=== PATIENT | male | born 1990 | race American Indian/Alaskan Native ===

== ENCOUNTER 2018-08-12 10:29 | Inpatient (IN) | payer SELFPAY ==
--- NOTE | 2018-08-12 10:39 | EDPHY ---
H & P Source: Patient, RN/MD, EMS Exam Limitations: No limitations Time Seen by Provider: 08/12/18 10:38 HPI/ROS: HPI: This is a 27-year-old male who presents with Chief Complaint: Asthma Location: Lung Quality: Dyspnea Duration: 48 hr Signs and Symptoms: no shortness of breath at rest, no shortness of breath on exertion, no cough, no chest pain, no palpitations, no lower extremity edema, + wheezing, no orthopnea, no paroxysmal nocturnal dyspnea, no fever, no injury/ trauma, no hemoptysis, no carpal pedal spasms Timing: Severity: Context: Patient recently removed from [place] to [place], [place] presents via EMS with complaints of asthma exacerbation that has worsened over the last 48 hr. At baseline he takes albuterol inhaler and QVAR. He reports that he has multiple allergies that cause exacerbations. He has several asthma exacerbations per year. Denies any hospitalizations for asthma exacerbation or need for intubation. Denies any fever, cough, calf pain, recent long distance travel. Patient believes that the fires up in [place] or causing his asthma exacerbation at this time. Has no primary care provider. Modifying Factors: EMS placed on non-rebreather due to hypoxia and gave 125 mg Solu-Medrol, albuterol nebulizer, DuoNeb nebulizer en route Comment: ROS: A comprehensive 10 system review of systems is otherwise negative aside from elements mentioned in the history of present illness. MEDICAL/SURGICAL/SOCIAL HISTORY: Medical history: Asthma Surgical history: Denies Social history: Employed. CONSTITUTIONAL: Polite and cooperative, malodorous, adult white male, awake and alert, mild distress HEENT: Atraumatic and normocephalic, PERRL, EOMI. Nares patent; no rhinorrhea; no nasal mucosal edema. Tympanic membranes clear. Oropharynx clear, no exudate and moist pink mucosa. Airway patent. No lymphadenopathy. No meningismus. Cardiovascular: Normal S1/S2, tachycardia, regular rhythm, without murmur rub or gallop. PULMONARY/CHEST: Symmetrical and nontender. Expiratory wheezing throughout. Fair air movement. + accessory muscle usage. + tachypnea ABDOMEN: Soft, nondistended, nontender, no rebound, no guarding, no peritoneal signs, no masses or organomegaly. No CVAT. EXTREMITIES: 2/2 pulses, strength 5/5, no deformities, no clubbing, no cyanosis or edema. No calf pain. No calf swelling. NEUROLOGICAL: no focal neuro deficits. GCS 15. SKIN: Warm and dry, no erythema. no rash. Good capillary refill. (Debra Gibbs) Constitutional: Initial Vital Signs Temperature (C) 36.8 C 08/12/18 10:41 Heart Rate 115 H 08/12/18 10:41 Respiratory Rate 22 H 08/12/18 10:41 Blood Pressure 107/82 H 08/12/18 10:41 O2 Sat (%) 87 L 08/12/18 10:41 O2 Delivery Mode Nasal Cannula O2 (L/minute) 4 Allergies/Adverse Reactions: No Known Allergies Allergy (Verified 08/12/18 13:31) Home Medications: Medication Instructions Recorded NK [No Known Home Meds] 08/12/18 Medical Decision Making - Diagnostics Imaging Results: Imaging Impressions Chest X-Ray 08/12/18 10:42 Impression: Mild bronchitis. No pneumonia or effusion. ED Course/Re-evaluation: Patient is 87% on room air; placed on continuous nebulizer with tachycardia and tachypnea. Laboratory studies including D-dimer, Chest x-ray, IV Mag 2 g, 500 cc normal saline bolus, DuoNeb for total of 3 ordered 1117: Labs reviewed. H&H 20/60 likely due to hyperventilation syndrome, platelets 260 K, WBC 6.25 K, D-dimer negative, BUN, 24, anion gap 19. No electrolyte imbalance. Chest x-ray shows mild bronchitis but no pneumonia, effusion, pneumothorax. 1150: Reassessed patient and still requiring 4 L of nasal cannula O2 sats 93%. Improving aeration. ED decision to consult hospitalist for asthma exacerbation admission. Spoke with Shi, who kindly agrees to admit patient to Dr. Aguero on med surg. This patient was seen under the supervision of my secondary supervising physician. I evaluated care for this patient independently. Discussed this patient with Dr. Kim. (Debra Gibbs) I did not see this patient while he was in the emergency department. However his care was discussed with the PA while the patient was in the department. I agree with treatment plan and management (Justin Kim) Differential Diagnosis: Shortness of breath including but not limited to pulmonary infectious process, COPD, asthma, pulmonary embolus and congestive heart failure. (Debra Gibbs) - Data Points Laboratory Results: Laboratory Results 08/12/18 10:40 08/12/18 10:40 08/12/18 08/12/18 08/12/18 10:40 10:40 10:40 WBC 16.25 10^3/uL H 10^3/uL (3.80-9.50) RBC 6.86 10^6/uL H 10^6/uL (4.40-6.38) Hgb 20.2 g/dL H* g/dL (13.7-17.5) Hct 60.0 % H % (40.0-51.0) MCV 87.5 fL fL (81.5-99.8) MCH 29.4 pg pg (27.9-34.1) MCHC 33.7 g/dL g/dL (32.4-36.7) RDW 15.4 % H % (11.5-15.2) Plt Count 260 10^3/uL 10^3/uL (150-400) MPV 11.4 fL fL (8.7-11.7) Neut % (Auto) 71.3 % % (39.3-74.2) Lymph % (Auto) 17.4 % % (15.0-45.0) [place] % (Auto) 7.9 % % (4.5-13.0) Eos % (Auto) 2.7 % % (0.6-7.6) Baso % (Auto) 0.4 % % (0.3-1.7) Nucleat RBC Rel Count 0.0 % % (0.0-0.2) Absolute Neuts (auto) 11.59 10^3/uL H 10^3/uL (1.70-6.50) Absolute Lymphs (auto) 2.83 10^3/uL 10^3/uL (1.00-3.00) Absolute Monos (auto) 1.28 10^3/uL H 10^3/uL (0.30-0.80) Absolute Eos (auto) 0.44 10^3/uL H 10^3/uL (0.03-0.40) Absolute Basos (auto) 0.06 10^3/uL 10^3/uL (0.02-0.10) Absolute Nucleated RBC 0.00 10^3/uL 10^3/uL (0-0.01) Immature Gran % 0.3 % % (0.0-1.1) Immature Gran # 0.05 10^3/uL 10^3/uL (0.00-0.10) D-Dimer < 0.27 ug/mLFEU ug/mLFEU (0.00-0.50) Sodium 143 mEq/L mEq/L (135-145) Potassium 4.1 mEq/L mEq/L (3.3-5.0) Chloride 101 mEq/L mEq/L (97-110) Carbon Dioxide 23 mEq/l mEq/l (22-31) Anion Gap 19 mEq/L H mEq/L (6-14) BUN 24 mg/dL H mg/dL (7-23) Creatinine 0.9 mg/dL mg/dL (0.7-1.3) Estimated GFR > 60 Glucose 79 mg/dL mg/dL (70-100) Calcium 10.6 mg/dL H mg/dL (8.5-10.4) Medications Given: Azithromycin (Zithromax) 500 mg PO DAILY JOSE ALFREDO PRN Reason: Protocol Stop: 09/11/18 13:59 Last Admin: 08/12/18 14:37 Dose: 500 mg Sodium Chloride (Ns) 1,000 mls @ 150 mls/hr IV CONT JOSE ALFREDO Stop: 02/08/19 13:59 Last Admin: 08/12/18 14:38 Dose: 1,000 mls Prednisone (Prednisone) 60 mg PO DAILY JOSE ALFREDO Stop: 02/08/19 13:59 Last Admin: 08/12/18 14:37 Dose: 60 mg Discontinued Medications Albuterol/Ipratropium (Duoneb) 3 ml IH EDNOW ONE Stop: 08/12/18 10:43 Last Admin: 08/12/18 11:03 Dose: 3 ml Sodium Chloride (Ns) 500 mls @ 1,000 mls/hr IV EDNOW ONE PRN Reason: Protocol Stop: 08/12/18 11:11 Last Admin: 08/12/18 10:45 Dose: 500 mls Magnesium Sulfate (Magnesium Sulf 2 Gm (Premix)) 50 mls @ 50 mls/hr IV EDNOW ONE Stop: 08/12/18 11:41 Last Admin: 08/12/18 11:03 Dose: 50 mls Departure - Departure Disposition: [facility] Clinical Impression: Moderate asthma with acute exacerbation Qualifiers: Asthma persistence: persistent Qualified Code(s): J45.41 - Moderate persistent asthma with (acute) exacerbation Condition: Fair
[2018-08-12] MEDS ORDERED: NS 500 ML IV ONE (10:42)
[2018-08-12] MEDS ORDERED: MAGNESIUM SULF 2 GM/WATER 50 ML IV ONE (10:42)
[2018-08-12] MEDS ORDERED: IPRATROPIUM/ALBUTEROL 3 ML DEYVIAL IH ONE (10:42)
[2018-08-12 11:09] LABS: PLATELET COUNT 260 10^3/uL (150-400)
[2018-08-12] MEDS ORDERED: LIDOCAINE 4%/MENTHOL 1% PATCH TD ONE (12:28)
--- NOTE | 2018-08-12 13:20 | ASMTCMCOM ---
CM Note CM Note Notes: Chart reviewed. 27 year old male admitted via ED with exacerbation of asthma. He is transient and has no PCP in this area. CM to follow for needs. Plan: TBD Date Signed: 08/12/2018 01:20 PM Electronically Signed By:Lizzette Hansne RN
[2018-08-12] MEDS ORDERED: ALBUTEROL 3 ML DEYVIAL IH PRN (13:52)
[2018-08-12] MEDS ORDERED: ONDANSETRON 4 MG/2 ML VIAL IVP PRN (13:52)
[2018-08-12] MEDS ORDERED: ONDANSETRON DISINTEGRATING 4 MG TAB PO PRN (13:52)
[2018-08-12] MEDS ORDERED: ACETAMINOPHEN 325 MG TAB PO PRN (13:52)
[2018-08-12] MEDS: AZITHROMYCIN 250 MG TAB PO SCH (14:37)
[2018-08-12] MEDS: predniSONE 20 MG TAB PO SCH (14:37)
[2018-08-12] MEDS: NS 1,000 ML IV SCH (14:38)
--- NOTE | 2018-08-12 15:22 | ASMTCMCOM ---
CM Note CM Note Notes: Able to meet with patient this afternoon. He is a very polite 27 year old male admitted via ED for exacerbation of asthma. Per his report he is living with a room mate in [place]. He smell profusely of cigarette smoke but he denies smoking cigarettes. "Just a bowl of pot" last night. Not currently employed and is uninsured. He states his only history is that of asthma. Needs TBD at this time. [facility]. Plan: TBD Date Signed: 08/12/2018 03:21 PM Electronically Signed By:Lizzette Hansen RN
--- NOTE | 2018-08-12 15:49 | PDGENHP ---
History and Physical - Chief Complaint Acute shortness of breath - History of Present Illness Primary care provider: None HPI: 27-year-old male presents with acute shortness of breath characterized as wheezy, labored breathing, struggling to stay alive, with onset of symptoms 5 days ago and duration persistent thereafter. The patient reports that his respiratory discomfort has been mildly alleviated with supplemental oxygen he is obtained from his friend, as well as intermittent use of albuterol inhaler. The patient reports that he was able to utilize his home inhaler and QVAR for the 1st 2 days of his symptoms, and these inhalers were able to alleviate the symptoms and make them tolerable. After his inhalers ran out, the patient had very limited access to albuterol, and his symptoms began to worsen thereafter. He otherwise endorses some associated symptoms that he refers to as "chest cold "which include nausea, mild sore throat, sinus congestion, but no overt fever chills. He reports that he recently relocated here from [place], and he has no access to outpatient medical care at the present time. History Information - Allergies/Home Medication List Allergies/Adverse Reactions: No Known Allergies Allergy (Verified 08/12/18 13:31) Home Medications: NK [No Known Home Meds] 08/12/18 [Last Taken Unknown] I have personally reviewed and updated: family history, medical history, social history, surgical history - Past Medical History asthma (With last hospitalization approximately 2 years ago, he reports that he has milder exacerbations several times a year, has never been intubated, age of diagnosis was early in childhood, and the patient has been on Advair, then transition to QVAR, has had regular use of outpatient albuterol inhaler) Additional medical history: Environmental allergies. Depression and cutting behavior at age 16 - Surgical History Additional surgical history: Tonsillectomy - Family History Additional family history: Mother with asthma, . Brother with heroin addiction. Does not know father's history - Social History Smoking Status: Former smoker Alcohol Use: None Drug Use: Marijuana Additional social history: Currently homeless, residing with a friend in [place] Review of Systems Review of Systems: ROS: 10pt was reviewed & negative except for what was stated in HPI & below Respiratory: Reports: cough, shortness of breath, wheezing Physical Exam Physical Exam: Temp Pulse Resp BP Pulse Ox 36.8 C 107 H 16 135/84 H 91 L 08/12/18 15:12 08/12/18 15:12 08/12/18 15:12 08/12/18 15:12 08/12/18 15:12 O2 (L/minute) 4 Constitutional: no apparent distress, not in pain, uncomfortable, unkempt Eyes: PERRL, anicteric sclera, EOMI Ears, Nose, Mouth, Throat: moist mucous membranes, hearing normal, no oral mucosal ulcers, other (No tonsillar exudate) Cardiovascular: tachycardia, No systolic murmur, No irregularly irregular, No edema Respiratory: expiratory wheeze, bronchial breath sounds, other (Cough triggered with inspiration, inspiratory wheezes, no upper airway stridor) Gastrointestinal: normoactive bowel sounds, soft, non-tender abdomen, no palpable masses Skin: other (Healed cut altamirano scars on his bilateral upper extremity forearms without any ulceration) Neurologic: AAOx3, sensation intact bilaterally, No weakness Psychiatric: interacting appropriately, not anxious, not encephalopathic, thought process linear Lab Data & Imaging Review 08/12/18 10:40 08/12/18 10:40 WBC 16.25 10^3/uL (3.80-9.50) H 08/12/18 10:40 RBC 6.86 10^6/uL (4.40-6.38) H 08/12/18 10:40 Hgb 20.2 g/dL (13.7-17.5) H* 08/12/18 10:40 Hct 60.0 % (40.0-51.0) H 08/12/18 10:40 MCV 87.5 fL (81.5-99.8) 08/12/18 10:40 MCH 29.4 pg (27.9-34.1) 08/12/18 10:40 MCHC 33.7 g/dL (32.4-36.7) 08/12/18 10:40 RDW 15.4 % (11.5-15.2) H 08/12/18 10:40 Plt Count 260 10^3/uL (150-400) 08/12/18 10:40 MPV 11.4 fL (8.7-11.7) 08/12/18 10:40 Neut % (Auto) 71.3 % (39.3-74.2) 08/12/18 10:40 Lymph % (Auto) 17.4 % (15.0-45.0) 08/12/18 10:40 [place] % (Auto) 7.9 % (4.5-13.0) 08/12/18 10:40 Eos % (Auto) 2.7 % (0.6-7.6) 08/12/18 10:40 Baso % (Auto) 0.4 % (0.3-1.7) 08/12/18 10:40 Nucleat RBC Rel Count 0.0 % (0.0-0.2) 08/12/18 10:40 Absolute Neuts (auto) 11.59 10^3/uL (1.70-6.50) H 08/12/18 10:40 Absolute Lymphs (auto) 2.83 10^3/uL (1.00-3.00) 08/12/18 10:40 Absolute Monos (auto) 1.28 10^3/uL (0.30-0.80) H 08/12/18 10:40 Absolute Eos (auto) 0.44 10^3/uL (0.03-0.40) H 08/12/18 10:40 Absolute Basos (auto) 0.06 10^3/uL (0.02-0.10) 08/12/18 10:40 Absolute Nucleated RBC 0.00 10^3/uL (0-0.01) 08/12/18 10:40 Immature Gran % 0.3 % (0.0-1.1) 08/12/18 10:40 Immature Gran # 0.05 10^3/uL (0.00-0.10) 08/12/18 10:40 D-Dimer < 0.27 ug/mLFEU (0.00-0.50) 08/12/18 10:40 Sodium 143 mEq/L (135-145) 08/12/18 10:40 Potassium 4.1 mEq/L (3.3-5.0) 08/12/18 10:40 Chloride 101 mEq/L (97-110) 08/12/18 10:40 Carbon Dioxide 23 mEq/l (22-31) 08/12/18 10:40 Anion Gap 19 mEq/L (6-14) H 08/12/18 10:40 BUN 24 mg/dL (7-23) H 08/12/18 10:40 Creatinine 0.9 mg/dL (0.7-1.3) 08/12/18 10:40 Estimated GFR > 60 08/12/18 10:40 Glucose 79 mg/dL (70-100) 08/12/18 10:40 Calcium 10.6 mg/dL (8.5-10.4) H 08/12/18 10:40 Visualized and Interpreted Chest x-ray results: Yes Chest X-Ray results: other (No airspace disease, some mild peribronchial thickening) Assessment & Plan Assessment: 27-year-old male presenting with acute asthma exacerbation, acute hypoxic respiratory failure, and systemic inflammatory response syndrome Plan: 1. Asthma exacerbation. Acute, new problem this provider, further workup indicated. Evidenced by expiratory wheezes and bronchial breath sounds with a known history of asthma, most likely trigger is URI verses environmental allergens -no infiltrate on chest x-ray -send respiratory viral panel -D-dimer is negative -patient reports that he has symptomatically improved with Solu-Medrol and nebulizer received by EMS, continue prednisone 60 mg daily plus azithromycin 500 daily plus DuoNeb scheduled plus antitussives as needed -patient will most likely require outpatient maintenance therapy comma recently on QVAR -will provide him with outpatient pulmonary follow-up after stabilization 2. Acute hypoxic respiratory failure. Evidenced by SpO2 of 87% on room air on presentation with visible tachypnea, symptomatic shortness of breath, requiring non-rebreather initially in the emergency department, currently weaned down to 4 L nasal cannula status post aggressive bronchodilator therapy for asthma -continue on supplemental oxygen, unclear whether patient will require supplemental oxygen at time discharge, he currently does not have any outpatient resources so he may require ongoing hospitalization [facility] as he has hypoxic 3. Systemic inflammatory response syndrome. Evidenced by tachycardia, tachypnea , leukocytosis, most likely triggered by asthma exacerbation, no evidence of acute infection -continue normal saline overnight, monitor heart rate and respiratory rate Diet. Regular Prophylaxis. Low risk patient, SCDs Code. Full, patient reports that he does not have anyone who would make medical decisions for him if he was unable to comma but he is amenable to his ex , Rosalinda Oates, who lives in [facility], if absolutely needed Dispo. Anticipated discharge is uncertain this time, anticipated length stay is greater than 48 hr for reasonable medical necessity including acute asthma exacerbation acute hypoxic respiratory failure and systemic inflammatory response syndrome. I have discussed patient's presentation with Debra Gibbs, ED provider, she reports to me that the patient presented in obvious respiratory distress requiring non-rebreather, has started to improve with bronchodilator therapy, steroids, weaned to 4 L nasal cannula at this time, she and I both agree patient meets inpatient criteria and is safe for the [facility] floor.
[2018-08-12] MEDS ORDERED: guaiFENesin/CODEINE PHOS 10 ML UDCUP PO PRN (15:56)
[2018-08-12] MEDS ORDERED: BENZONATATE 100 MG CAP PO PRN (15:56)
[2018-08-12] MEDS: IPRATROPIUM/ALBUTEROL 3 ML DEYVIAL IH SCH ×2 (16:01→19:01)
[2018-08-13] MEDS: IPRATROPIUM/ALBUTEROL 3 ML DEYVIAL IH SCH ×4 (03:21→21:59)
[2018-08-13] MEDS: NS 1,000 ML IV SCH (03:33)
--- NOTE | 2018-08-13 06:49 | PDMN ---
Medical Necessity Medical necessity: Pt meets inpt criteria per MD order and [facility] M-60, Asthma. 27 y/o admitted w/acute hypoxic respiratory failure in setting of asthma exacerbation presenting w/exp wheezing, SpO2 of 87% on room air, visible tachypnea, symptomatic shortness of breath requiring non-rebreather initially then 4 L O2 nc, SIRS as evidenced by tachycardia, tachypnea, leukocytosis. IVF, suppl O2, steroids, abx,, Anticipate>2MN for med nec ongoing management of above.
[2018-08-13] MEDS: predniSONE 20 MG TAB PO SCH (10:44)
[2018-08-13] MEDS: AZITHROMYCIN 250 MG TAB PO SCH (10:44)
[2018-08-13] MEDS ORDERED: MEPERIDINE 25 MG/0.5 ML AMP ONE (10:59)
[2018-08-13] MEDS ORDERED: HYDROmorphONE/DILAUDID 2 MG/ML INJ ONE (10:59)
--- NOTE | 2018-08-13 12:48 | ASMTCMCOM ---
CM Note CM Note Notes: Attempt made to screen patient for medicaid. He has no knowledge of his social security number and currently has no photo ID. He is asking if we will provide him medications upon discharge. He states his living situation is not optimal. I have encouraged him to utilize the [facility] bed and opt for the pathway to home,Per Dr. Linda request, I have made him a [facility] appointment for [facility]/19 at 2: 10 pm with Lakia Sainz at the [place] location. CM available should other needs arise. Plan: Dc to [facility] or to [place] where he has been staying. Date Signed: 08/13/2018 12:47 PM Electronically Signed By:Lizzette Hansen RN
--- NOTE | 2018-08-13 20:15 | HOSPPROG ---
Hospitalist Progress Note Assessment/Plan: Assessment: 27-year-old male presenting with acute asthma exacerbation, acute hypoxic respiratory failure, and systemic inflammatory response syndrome Plan: 1. Asthma exacerbation. Acute, evidenced by expiratory wheezes and bronchial breath sounds with a known history of asthma, most likely trigger is URI verses environmental allergens -RVP neg -patient will require maintenance therapy s/p DC, reviewed choices w/ pharmacy, will start Advair -cont scheduled duonebs given ongoing diffuse exp wheeze and hypoxia -cont D#2 steroids/Azithro -will provide him with outpatient pulmonary follow-up after stabilization 2. Acute hypoxic respiratory failure. Evidenced by SpO2 of 87% on room air on presentation with visible tachypnea, symptomatic shortness of breath, requiring non-rebreather initially in the emergency department -counseled patient re: ongoing o2 needs, encouraged patient/RN to check ambulatory RA sat 3. Systemic inflammatory response syndrome. Evidenced by tachycardia, tachypnea , leukocytosis, most likely triggered by asthma exacerbation, no evidence of acute infection -resolved Diet. Regular Prophylaxis. Low risk patient, SCDs Code. Full, patient reports that he does not have anyone who would make medical decisions for him if he was unable to comma but he is amenable to his ex , Rosalinda Oates, who lives in [facility], if absolutely needed Dispo. ADD 08/14, pending clinical resolution of above, ongoing o2 needs/exp wheezes Subjective: ongoing SOB Objective: Vital Signs Temp Pulse Resp BP Pulse Ox 36.8 C 95 18 99/59 L 92 08/13/18 15:33 08/13/18 16:20 08/13/18 16:20 08/13/18 15:33 08/13/18 16:20 Microbiology 08/12/18 15:30 Respiratory Panel (PCR) - Final Nasal, Sinus - Swab No Organism Detected 08/12/18 08/13/18 08/14/18 05:59 05:59 05:59 Intake Total 1789 2568 Balance 1789 2568 - Physical Exam Constitutional: no apparent distress, appears nourished, not in pain, uncomfortable Cardiovascular: regular rate and rhythym, no murmur, rub, or gallop, No edema Respiratory: reduced air movement, expiratory wheeze (bilat), other (mild insp wheeze), No bronchial breath sounds Gastrointestinal: normoactive bowel sounds, soft, non-tender abdomen, no palpable masses Neurologic: AAOx3 Psychiatric: interacting appropriately, not anxious, not encephalopathic, thought process linear ICD10 Worksheet Patient Problems: Problems Problem Status Onset Moderate asthma with acute exacerbation Acute
[2018-08-13] MEDS: FLUTICASONE/SALMETER 250/50MCG DISKUS IH SCH (21:59)
[2018-08-14] MEDS: IPRATROPIUM/ALBUTEROL 3 ML DEYVIAL IH SCH ×4 (05:36→21:11)
[2018-08-14] MEDS: AZITHROMYCIN 250 MG TAB PO SCH (10:10)
[2018-08-14] MEDS: predniSONE 20 MG TAB PO SCH (10:11)
[2018-08-14] MEDS: FLUTICASONE/SALMETER 250/50MCG DISKUS IH SCH ×2 (10:27→21:11)
--- NOTE | 2018-08-14 17:36 | HOSPPROG ---
Hospitalist Progress Note Assessment/Plan: Assessment: 27-year-old male presenting with acute asthma exacerbation, acute hypoxic respiratory failure, and systemic inflammatory response syndrome Plan: 1. Asthma exacerbation. Acute, evidenced by expiratory wheezes and bronchial breath sounds with a known history of asthma, most likely trigger is URI verses environmental allergens -RVP neg -started Advair -cont scheduled duonebs given ongoing diffuse exp wheeze and hypoxia -cont D#3 steroids/Azithro -case mgmt to help arrange [facility] appt, where he will likely receive ongoing Rx 2. Acute hypoxic respiratory failure. Evidenced by SpO2 of 87% on room air on presentation with visible tachypnea, symptomatic shortness of breath, requiring non-rebreather initially in the emergency department -counseled patient re: ongoing o2 needs, encouraged patient/RN to check ambulatory RA sat -SpO2 86% RA w/ ambulation, unsafe to DC w/o o2 3. Systemic inflammatory response syndrome. Evidenced by tachycardia, tachypnea , leukocytosis, most likely triggered by asthma exacerbation, no evidence of acute infection -resolved Diet. Regular Prophylaxis. Low risk patient, SCDs Code. Full, patient reports that he does not have anyone who would make medical decisions for him if he was unable to comma but he is amenable to his ex , Rosalinda Oates, who lives in [facility], if absolutely needed Dispo. ADD 08/15, pending clinical resolution of above, ongoing o2 needs/exp wheezes Subjective: reports he is starting to feel better, ongoing SOB w/ ambulation Objective: Vital Signs Temp Pulse Resp BP Pulse Ox 36.7 C 88 20 114/68 90 L 08/14/18 14:50 08/14/18 16:32 08/14/18 16:32 08/14/18 14:50 08/14/18 16:32 08/13/18 08/14/18 08/15/18 05:59 05:59 05:59 Intake Total 1789 2818 Output Total 200 Balance 1789 2618 - Physical Exam Constitutional: no apparent distress, appears nourished, not in pain Cardiovascular: regular rate and rhythym, no murmur, rub, or gallop Respiratory: expiratory wheeze, other (insp wheeze bilat), No reduced air movement, No bronchial breath sounds, No respiratory distress Gastrointestinal: normoactive bowel sounds, soft, non-tender abdomen, no palpable masses Neurologic: AAOx3 Psychiatric: interacting appropriately, not anxious, not encephalopathic, thought process linear ICD10 Worksheet Patient Problems: Problems Problem Status Onset Moderate asthma with acute exacerbation Acute
[2018-08-15] MEDS: IPRATROPIUM/ALBUTEROL 3 ML DEYVIAL IH SCH (05:24)
[2018-08-15 07:30] VITALS: BP 115/73
[2018-08-15] MEDS: AZITHROMYCIN 250 MG TAB PO SCH (08:25)
[2018-08-15] MEDS: predniSONE 20 MG TAB PO SCH (08:25)
[2018-08-15] MEDS ORDERED: ALBUTEROL 60 PUFFS/8 GM MDI IH PRN (08:56)
[2018-08-15] MEDS: FLUTICASONE/SALMETER 250/50MCG DISKUS IH SCH (09:33)
--- NOTE | 2018-08-15 11:20 | ASMTLACE ---
LACE Length of stay for Answers: 2 days current admission Acuity / Level of Answers: Yes Care: Did the patient have an inpatient admission? Comorbidities - select Answers: Other Notes: asthma all that apply # of Emergency department Answers: 1-2 visits in the last 6 months Social determinants Answers: Homelessness (street, custodial) Lack of community resources and/or lack of social support (no pcp, lives alone, transportation, tariq d) Score: 14 Date Signed: 08/15/2018 11:19 AM Electronically Signed By:Lisa Aguirre RN
--- NOTE | 2018-08-15 11:22 | ASMTCMCOM ---
CM Note CM Note Notes: Met with pt, declines the need for a custodial bed. He will go back up to stay in [place]. CM gave him a bus pass and he is aware of his appointment at the [facility] on Saturday. CM available for any changes. DC Plan: Independent Date Signed: 08/15/2018 11:21 AM Electronically Signed By:Lisa Aguirre RN
--- NOTE | 2018-08-15 19:25 | PDDCSUM ---
Discharge Summary Discharge Summary: DISCHARGE SUMMARY FOLLOW-UP ITEMS: [facility] DATE OF ADMISSION: 08/12/2018 DATE OF DISCHARGE: 08/15/2018 DISCHARGE DIAGNOSES: 1. Acute asthma exacerbation 2. Acute hypoxic respiratory failure 3. Systemic inflammatory response syndrome CONSULTATIONS: None PROCEDURES / IMAGING: Chest x-ray demonstrating no focal airspace disease CHIEF COMPLAINT: Acute shortness of breath, cough SUBJECTIVE: Patient is feeling much improved at time of discharge PHYSICAL EXAM ON DISCHARGE: Saturating 95% on room air, ongoing expiratory wheezes bilaterally but with improved air movement from day prior, no bronchial breath sounds, no visible tachypnea HOSPITAL COURSE BY PROBLEM: Patient presented with acute shortness of breath and cough with auditory expiratory wheezes and bronchial breath sounds secondary to an acute asthma exacerbation. This was most likely triggered by upper respiratory viral precipitant, although his respiratory viral panel was negative for common viruses. He has also recently been off of his QVAR and has run out of his albuterol inhaler. The patient's situation resultant acute hypoxic respiratory failure evidenced by SpO2 of 87% on room air with visible tachypnea, symptomatic shortness of breath and the patient initially requiring a non- rebreather in the emergency department. He received IV steroids, scheduled duo nebs, antibiotics reduce airway inflammation, and supplemental oxygen. By evening, the patient was weaned off of supplemental oxygen, received ongoing scheduled nebs overnight, and was safe for discharge home on 08/15 with an albuterol inhaler in hand as well as an Advair inhaler for maintenance therapy. The patient was scheduled follow-up appointment at [facility] where he will require an ongoing supply of maintenance medication. He was also prescribed a prednisone taper given his severity of illness and protracted resolution. DISCHARGE MEDICATIONS: Please see official discharge medication reconciliation sheet in chart , prednisone taper over 9 days, albuterol inhaler in hand, Advair inhaler in hand. DISCHARGE INSTRUCTIONS: Please follow up with [facility] next week as scheduled. TIME SPENT: Greater than 30 minutes were spent on direct patient care, as well as discharge planning and preparation.
== END 2018-08-15 12:04 | disposition home or self-care (01) | DRG 202 ==
LOC: F1N 13:06 → F3E 08-14 21:23
PROVIDERS: ADMIT Internal Medicine; ATTEND Internal Medicine
DX: J45.901 Unspecified asthma with (acute) exacerbation (principal); J96.01 Acute respiratory failure with hypoxia; R65.10 Systemic inflammatory response syndrome (SIRS) of non-infectious origin without acute organ dysfunction; E86.9 Volume depletion, unspecified; Z59.0 Homelessness
CPT/HCPCS: 96365; J1170; J2175; J3475; J7512

== ENCOUNTER 2018-09-17 10:51 | Emergency (ER) | payer MEDICAID ==
--- NOTE | 2018-09-17 11:00 | EDPHY ---
H & P Time Seen by Provider: 09/17/18 10:52 HPI/ROS: CHIEF COMPLAINT: Asthma exacerbation HISTORY OF PRESENT ILLNESS: Patient is a 28-year-old man who is brought to the emergency department via EMS complaining of an asthma exacerbation. He states that he typically has mild asthma but only needs his inhaler once or twice per month. Last night his symptoms got worse and he developed shortness of breath. He does not have his inhaler with him currently. His girlfriend is a smoker and they also got new puppies. He suspects that these are the triggers. No recent runny nose or cold symptoms. No sore throat. No cough. This morning they called EMS who gave him Solu-Medrol IV 125 mg as well as 2 rounds of albuterol. He now is feeling much better. He still has mild wheezes but is saturating 98% on room air. Severity: Moderate Modifying factors: Improved with treatment REVIEW OF SYSTEMS: Constitutional: denies: chills, fever, recent illness, recent injury EENTM: denies: blurred vision, double vision, nose congestion Respiratory: See HPI Cardiac: denies: chest pain, irregular heart rate, lightheadedness, palpitations Gastrointestinal/Abdominal: denies: abdominal pain, diarrhea, nausea, vomiting, blood streaked stools Genitourinary: denies: dysuria, frequency, hematuria, pain Musculoskeletal: denies: joint pain, muscle pain Skin: denies: lesions, rash, jaundice, bruising Neurological: denies: headache, numbness, paresthesia, tingling, dizziness, weakness Hematologic/Lymphatic: denies: blood clots, easy bleeding, easy bruising Immunologic/allergic: denies: HIV/AIDS, transplant 10 systems reviewed and negative except as noted EXAM: GENERAL: Well-appearing, well-nourished and in no acute distress. HEAD: Atraumatic, normocephalic. EYES: Pupils equal round and reactive to light, extraocular movements intact, sclera anicteric, conjunctiva are normal. ENT: TMs normal, nares patent, oropharynx clear without exudates. Moist mucous membranes. NECK: Normal range of motion, supple without lymphadenopathy or JVD. LUNGS: Mild expiratory wheezing, no rhonchi HEART: Regular rate and rhythm without murmurs, rubs or gallops. ABDOMEN: Soft, nontender, normoactive bowel sounds. No guarding, no rebound. No masses appreciated. BACK: No CVA tenderness, no spinal tenderness, step-offs or deformities EXTREMITIES: Normal range of motion, no pitting or edema. No clubbing or cyanosis. NEUROLOGICAL: Cranial nerves II through XII grossly intact. Normal speech, normal gait. 5/5 strength, normal movement in all extremities, normal sensation , normal reflexes PSYCH: Normal mood, normal affect. SKIN: Warm, dry, normal turgor, no visible rashes or lesions. Source: Patient, EMS Exam Limitations: No limitations - Medical/Surgical History Hx Asthma: Yes Hx Chronic Respiratory Disease: No Hx Diabetes: No Hx Cardiac Disease: No Hx Renal Disease: No Hx Cirrhosis: No Hx Alcoholism: No Hx HIV/AIDS: No Other PMH: Asthma - Family History Significant Family History: No pertinent family hx - Social History Smoking Status: Former smoker Alcohol Use: Sober Drug Use: None Constitutional: Initial Vital Signs Temperature (C) 36.8 C 09/17/18 10:56 Heart Rate 71 09/17/18 10:56 Respiratory Rate 22 H 09/17/18 10:56 Blood Pressure 134/83 H 09/17/18 10:56 O2 Sat (%) 97 09/17/18 10:56 O2 Delivery Mode Room Air Allergies/Adverse Reactions: No Known Allergies Allergy (Unverified 09/17/18 11:07) Home Medications: Medication Instructions Recorded Albuterol [Proventil Inhaler] 1 - 2 puffs IH Q4H #1 mdi 09/17/18 predniSONE 60 mg PO DAILY #15 tab 09/17/18 Medical Decision Making ED Course/Re-evaluation: 12:20 p.m. the patient is saturating 98% on room air. He is feeling much better. He is eager to go home. Will discharge with albuterol and prednisone. We discussed indications for returning. Differential Diagnosis: Partial list of the Differential diagnosis considered include but were not limited to; asthma exacerbation, bronchitis, and although unlikely based on the history and physical exam, I also considered pneumothorax, acute coronary disease. I discussed these differential diagnoses and the plan with the patient as well as the usual and expected course. The patient understands that the diagnosis is provisional and that in medicine we are not always correct and that further workup is often warranted. Usual and customary warnings were given. All of the patient's questions were answered. The patient was instructed to return to the emergency department should the symptoms at all worsen or return, otherwise to followup with the physician as we discussed. Departure - Departure Disposition: Home, Routine, Self-Care Clinical Impression: Exacerbation of asthma Qualifiers: Asthma severity: mild Asthma persistence: intermittent Qualified Code(s): J45.21 - Mild intermittent asthma with (acute) exacerbation Condition: Fair Instructions: Asthma (ED) Additional Instructions: You have a follow up appointment scheduled at [facility] for September 23 at 10:50 AM. [address] Please bring a photo ID, ant medications you are taking, and your ED discharge paperwork with you to your appointment You will have a $20 co-pay due at the time of this visit and you will have 30 days from the date of this appointment to establish medical (insurance) coverage. We have provided you information today regarding the process for Medicaid application. You will check in at The [employer] desk and your provider is NANCY Garrison It is important that you keep this appointment and establish a primary care provider. This will help you to manage your asthma, medications, and any other health concerns Referrals: Patient,NotPresent [Primary Care Provider] - As per Instructions [facility],. [Clinic] - 2-3 days, call for appt. Prescriptions: Albuterol [Proventil Inhaler] 1 - 2 puffs IH Q4H #1 mdi predniSONE 60 mg PO DAILY #15 tab
[2018-09-17 13:29] VITALS: BP 135/75
--- NOTE | 2018-09-17 17:02 | ASMTCMCOM ---
CM Note CM Note Notes: Appointment scheduled at [facility] for ED follow up and to establish PCP on September 23 at 1050 AM. Patient aware of $20 co-pay and was provided information regarding [place] Medicaid application. Patient states that he is originally from [place] but has been living in [place] for the past couple of years and is currently covered by [place] Medicaid. Patient is living in [place] and tells this CM that he has recently started working at [employer]. He assures me he will follow up with his appointment on Saturday and I have faxed ED report to [facility] Date Signed: 09/17/2018 05:01 PM Electronically Signed By:Grecia Andrews RN
== END 2018-09-17 13:29 | disposition home or self-care (01) ==
LOC: MERGE 10:51
DX: J45.21 Mild intermittent asthma with (acute) exacerbation (principal); Z87.891 Personal history of nicotine dependence

== ENCOUNTER 2018-09-23 22:32 | Emergency (ER) | payer SELFPAY ==
[~2018-09-23 22:32] MED LIST: predniSONE 20 MG TAB PO SCH
--- NOTE | 2018-09-23 22:41 | EDPHY ---
H & P Stated Complaint: SOB and asthma attack Time Seen by Provider: 09/23/18 22:39 HPI/ROS: HPI The patient presents with asthma exacerbation, brought in by EMS. The patient has a history of asthma and over the last 1 day has had increasing wheezes. He has had wheezing this morning, and the [place] fire department gave him a DuoNeb with improvement in his symptoms. However he had increasing wheezing throughout the course of the day and called 911. He traveled from [place] to [place] with hopes that the lower elevation would help his symptoms. He believes the cold weather is his trigger. When paramedics picked him up his room air saturation was 90% but he was not in any respiratory distress. He was given Solu-Medrol and a DuoNeb and is now feeling better. He does not have any cough, rhinorrhea, sore throat, fever. Upon review of old records, patient has a ED visit on September 17 for mild asthma exacerbation and was discharged. He completed a course of albuterol. On August 12 he was admitted to the hospital for asthma exacerbation for 3 days. REVIEW OF SYSTEMS 10 systems were reviewed and negative with the exception of the elements mentioned in the history of present illness. PMHx: Asthma since childhood, many admissions with no intubations Soc Hx: Transiently living in [place] with plans to travel to [place] , nonsmoker, uses marijuana edibles, girlfriend smokes cigarettes PHYSICAL General Appearance: Alert, no distress Eyes: Pupils equal and round no pallor or injection ENT, Mouth: Mucous membranes moist Respiratory: There are no retractions, he is speaking full sentences, he has expiratory wheezes in all lung zazueta Cardiovascular: Regular rate and rhythm Gastrointestinal: Abdomen is soft and non-tender, no masses, bowel sounds normal Neurological: A&O, moves all extremities Skin: Warm and dry, no rashes Musculoskeletal: Neck is supple non tender Extremities: symmetrical, full range of motion Psychiatric: Patient is oriented X 3, there is no agitation Source: Patient, EMS, Old records Exam Limitations: No limitations - Personal History Current Tetanus/Diphtheria Vaccine: No Current Tetanus Diphtheria and Acellular Pertussis (TDAP): No - Medical/Surgical History Hx Asthma: Yes Hx Chronic Respiratory Disease: No Hx Diabetes: No Hx Cardiac Disease: No Hx Renal Disease: No Hx Cirrhosis: No Hx Alcoholism: No Hx HIV/AIDS: No Hx Splenectomy or Spleen Trauma: No Other PMH: Asthma, right ankle surgery - Social History Smoking Status: Former smoker Constitutional: Initial Vital Signs Temperature (C) 36.6 C 09/23/18 22:35 Heart Rate 94 09/23/18 22:35 Respiratory Rate 18 09/23/18 22:35 Blood Pressure 128/83 H 09/23/18 22:35 O2 Sat (%) 91 L 09/23/18 22:35 O2 Delivery Mode Room Air Allergies/Adverse Reactions: No Known Allergies Allergy (Verified 09/23/18 22:37) Home Medications: Medication Instructions Recorded Albuterol [Proventil Inhaler HFA 2 puffs IH Q4HRS PRN mdi 08/15/18 (*)] predniSONE 40 mg PO DAILY 4 Days tablet 09/23/18 Medical Decision Making Differential Diagnosis: This is a 28-year-old male who is brought in by ambulance for shortness of breath and wheezing for the last 1 day. He has a history of asthma. He is initially hypoxic at about 90% when paramedics found him. He has improved with a DuoNeb and Solu-Medrol. Here, he is not in any respiratory distress, his lungs have expiratory wheezes. Plan for repeat albuterol here, monitoring. The patient improved after receiving an albuterol nebulizer treatment. He was observed here for about 2 hr. He had no desaturations. He still had expiratory wheezes but they had diminished significantly. He feels comfortable being discharged home. We have discharged him with prednisone prescription in hand as well as albuterol inhaler in hand. I have advised him that [facility] I feel that he should be on a daily controller medication for his asthma. Differential diagnosis includes asthma exacerbation, less likely COPD exacerbation, less likely pneumonia. - Data Points Medications Given: Discontinued Medications Albuterol (Proventil Neb) 5 ml IH EDNOW ONE Stop: 09/23/18 22:53 Last Admin: 09/23/18 22:56 Dose: 5 ml Albuterol Sulfate (Proventil Inh Prepack) 1 mdi TAKEHOME EDNOW ONE Stop: 09/23/18 22:53 Last Admin: 09/23/18 23:10 Dose: 1 mdi Departure - Departure Disposition: Home, Routine, Self-Care Clinical Impression: Moderate asthma with acute exacerbation Qualifiers: Asthma persistence: unspecified Qualified Code(s): J45.901 - Unspecified asthma with (acute) exacerbation Condition: Good Instructions: Albuterol (By breathing), Asthma (ED) Referrals: [facility],. [Clinic] - As per Instructions Prescriptions: predniSONE 40 mg PO DAILY 4 Days tablet
[2018-09-23] MEDS ORDERED: ALBUTEROL 3 ML DEYVIAL IH ONE (22:52)
[2018-09-23] MEDS ORDERED: ALBUTEROL INH PREPACK MDI TAKEHOME ONE (22:52)
[2018-09-23 23:39] VITALS: BP 125/69
== END 2018-09-24 00:36 | disposition home or self-care (01) ==
LOC: EDUNIT#
DX: J45.41 Moderate persistent asthma with (acute) exacerbation (principal); Z87.891 Personal history of nicotine dependence
CPT/HCPCS: J7512; J7613

== ENCOUNTER 2018-10-03 05:05 | Emergency (ER) | payer SELFPAY ==
[2018-10-03] MEDS ORDERED: methylPREDNISolone SOD SUCC 125 MG/2 ML VIAL IVP ONE (05:09)
[2018-10-03] MEDS ORDERED: IPRATROPIUM/ALBUTEROL 3 ML DEYVIAL IH ONE ×2 (05:09→05:47)
[2018-10-03] MEDS ORDERED: NS 1,000 ML IV ONE ×2 (05:09→05:47)
[2018-10-03] MEDS ORDERED: ALBUTEROL INH PREPACK MDI TAKEHOME ONE (05:12)
--- NOTE | 2018-10-03 05:12 | EDPHY ---
H & P Time Seen by Provider: 10/03/18 05:09 HPI/ROS: HPI CHIEF COMPLAINT: Asthma HISTORY OF PRESENT ILLNESS: 28-year-old male, presents emergency room for asthma attack. Patient is homeless. 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 He presents emergency room shortness of breath, wheezing and a cough. Patient is currently homeless and has been homeless for 8 years. [place]. When he gets very cold night sometimes asthma acts up. He does smoke marijuana regularly. No tobacco. He presents emergency room after calling 911 for wheezing and shortness of breath. EMS started a DuoNeb breathing treatment for him and brought him to the emergency room. He arrives emergency room in no acute distress but does have wheezing throughout all lung zazueta. No respiratory distress. Patient denies recent illness or fever. Patient has never been intubated. Patient has been hospitalized for asthma. Patient reports he ran out of his inhaler 4 days ago. Past Medical History: Asthma Past Surgical History: No recent surgery Social History: Smokes marijuana. Homeless. Denies other drugs or alcohol. Family History: Noncontributory ROS REVIEW OF SYSTEMS: 10 Systems were reviewed and negative with the exception of the elements mentioned in the history of present illness. Exam Constitutional triage nursing summary reviewed, vital signs reviewed, awake/ alert. Eyes normal conjunctivae and sclera, EOMI, PERRLA. HENT normal inspection, atraumatic, moist mucus membranes, no epistaxis, neck supple/ no meningismus, no raccoon eyes. Respiratory wheezing throughout all lung zazueta. Decreased breath sounds bilaterally. Cardiovascular rate normal, regular rhythm, no murmur, no edema, distal pulses normal. Gastrointestinal soft, non-tender, no rebound, no guarding, normal bowel sounds, no distension, no pulsatile mass. Genitourinary no CVA tenderness. Musculoskeletal no midline vertebral tenderness, full range of motion, no calf swelling, no tenderness of extremities, no meningismus, good pulses, neurovascularly intact. Skin pink, warm, & dry, no rash, skin atraumatic. Neurologic awake, alert and oriented x 3, AAOx3, moves all 4 extremities equally, motor intact, sensory intact, CN II-XII intact, normal cerebellar, normal vision, normal speech. Psychiatric normal mood/affect. Heme/Lymph/Immune no lymphadenopathy. Differential Diagnosis: Includes but is not limited to in a particular order acute asthma attack, reactive airway disease, bronchitis, pneumonia, viral pneumonia, bacterial pneumonia, pneumothorax, CHF Medical Decision Making: Plan for this patient DuoNeb breathing treatment, IV fluid bolus 1 L normal saline, IV Solu-Medrol 125 mg, chest x-ray rule out pneumonia, re-evaluate. Re-evaluation: X-ray of the chest one view reviewed bronchitis. No pneumonia. Patient re-evaluated 5:55 a.m.. Wheezing greatly improved with DuoNeb breathing treatment he states he feels much better. He still has faint wheezing bilaterally a 2nd breathing treatment as been ordered. Patient is received Solu-Medrol 125 mg Patient getting 2nd L fluid. Patient feeling much better. 0657: Patient re-evaluated this time. He is requesting to be discharged from the emergency room he states that he needs to go and take care of 2 young puppies. He states he feels much better good air movement. Pulse ox room air sat 97% on room air. His vital signs are otherwise stable blood pressure 113/73, heart rate 88. Patient's chest x-ray reviewed shows bronchitis Patient received 2 L of fluid here in emergency room, 2 DuoNeb breathing treatments, and IV Solu-Medrol. I have ordered the patient take-home albuterol inhaler Additionally prednisone 60 mg for 5 days. Additionally discussed return precautions with me understands return emergency room if develops worsening shortness of breath, wheezing, trouble breathing or not doing well. Patient ambulated well at 7:06 a.m. Around the emergency room without difficulty. Pulse ox above 95%. Feels comfortable being discharged in fact he states that he needs to leave at this time. I did discuss he gets more short of breath or wheezing today or has trouble breathing needs return. He is comfortable for this. Source: Patient, EMS - Medical/Surgical History Hx Asthma: Yes Hx Chronic Respiratory Disease: No Hx Diabetes: No Hx Cardiac Disease: No Hx Renal Disease: No Hx Cirrhosis: No Hx Alcoholism: No Hx HIV/AIDS: No Hx Splenectomy or Spleen Trauma: No Other PMH: Asthma, right ankle surgery - Social History Smoking Status: Former smoker Constitutional: Initial Vital Signs Temperature (C) 36.5 C 10/03/18 05:07 Heart Rate 85 10/03/18 05:07 Respiratory Rate 22 H 10/03/18 05:07 Blood Pressure 99/73 L 10/03/18 05:07 O2 Sat (%) 100 10/03/18 05:07 O2 Delivery Mode Room Air Allergies/Adverse Reactions: No Known Allergies Allergy (Verified 10/03/18 05:07) Home Medications: Medication Instructions Recorded Albuterol [Proventil Inhaler HFA 2 puffs IH Q4HRS PRN mdi 08/15/18 (*)] Prednisone 10/03/18 predniSONE 60 mg PO DAILY #15 tab 10/03/18 Medical Decision Making - Data Points Laboratory Results: Laboratory Results 10/03/18 05:50 10/03/18 05:50 10/03/18 10/03/18 05:50 05:50 WBC 12.21 10^3/uL H 10^3/uL (3.80-9.50) RBC 6.61 10^6/uL H 10^6/uL (4.40-6.38) Hgb 20.0 g/dL H g/dL (13.7-17.5) Hct 59.7 % H % (40.0-51.0) MCV 90.3 fL fL (81.5-99.8) MCH 30.3 pg pg (27.9-34.1) MCHC 33.5 g/dL g/dL (32.4-36.7) RDW 13.6 % % (11.5-15.2) Plt Count 224 10^3/uL 10^3/uL (150-400) MPV 11.5 fL fL (8.7-11.7) Neut % (Auto) 55.6 % % (39.3-74.2) Lymph % (Auto) 30.4 % % (15.0-45.0) Cuming % (Auto) 7.2 % % (4.5-13.0) Eos % (Auto) 5.7 % % (0.6-7.6) Baso % (Auto) 0.6 % % (0.3-1.7) Nucleat RBC Rel Count 0.0 % % (0.0-0.2) Absolute Neuts (auto) 6.79 10^3/uL H 10^3/uL (1.70-6.50) Absolute Lymphs (auto) 3.71 10^3/uL H 10^3/uL (1.00-3.00) Absolute Monos (auto) 0.88 10^3/uL H 10^3/uL (0.30-0.80) Absolute Eos (auto) 0.70 10^3/uL H 10^3/uL (0.03-0.40) Absolute Basos (auto) 0.07 10^3/uL 10^3/uL (0.02-0.10) Absolute Nucleated RBC 0.00 10^3/uL 10^3/uL (0-0.01) Immature Gran % 0.5 % % (0.0-1.1) Immature Gran # 0.06 10^3/uL 10^3/uL (0.00-0.10) Sodium 143 mEq/L mEq/L (135-145) Potassium 4.4 mEq/L mEq/L (3.5-5.2) Chloride 103 mEq/L mEq/L (97-110) Carbon Dioxide 28 mEq/l mEq/l (22-31) Anion Gap 12 mEq/L mEq/L (6-14) BUN 24 mg/dL H mg/dL (7-23) Creatinine 0.8 mg/dL mg/dL (0.7-1.3) Estimated GFR > 60 Glucose 74 mg/dL mg/dL (70-100) Calcium 10.1 mg/dL mg/dL (8.5-10.4) Medications Given: Discontinued Medications Albuterol Sulfate (Proventil Inh Prepack) 1 mdi TAKEHOME EDNOW ONE Stop: 10/03/18 05:13 Last Admin: 10/03/18 05:19 Dose: 1 mdi Albuterol/Ipratropium (Duoneb) 3 ml IH EDNOW ONE Stop: 10/03/18 05:10 Last Admin: 10/03/18 05:15 Dose: 3 ml Albuterol/Ipratropium (Duoneb) 3 ml IH EDNOW ONE Stop: 10/03/18 05:48 Last Admin: 10/03/18 05:52 Dose: 3 ml Sodium Chloride (Ns) 1,000 mls @ 0 mls/hr IV ONCE ONE; Wide Open PRN Reason: Protocol Stop: 10/03/18 05:10 Last Admin: 10/03/18 05:18 Dose: 1,000 mls Sodium Chloride (Ns) 1,000 mls @ 0 mls/hr IV ONCE ONE PRN Reason: Wide Open Stop: 10/03/18 05:48 Last Admin: 10/03/18 05:52 Dose: 1,000 mls Methylprednisolone Sodium Succinate (Solu-Medrol) 125 mg IVP EDNOW ONE Stop: 10/03/18 05:10 Last Admin: 10/03/18 05:15 Dose: 125 mg Departure - Departure Disposition: Home, Routine, Self-Care Clinical Impression: Acute asthma Condition: Good Instructions: Asthma (ED), Bronchospasm (ED), Wheezing (ED) Additional Instructions: 1. Return emergency room if worse. 2. Albuterol inhaler 2 puffs every 4 hr as needed for wheezing and shortness of breath. 3. Steroids as prescribed. 4. Return if worse. Referrals: Patient,NotPresent [Unknown] - As per Instructions Prescriptions: predniSONE 60 mg PO DAILY #15 tab
[2018-10-03 06:02] LABS: PLATELET COUNT 224 10^3/uL (150-400)
[2018-10-03 07:14] VITALS: BP 114/76
== END 2018-10-03 07:13 | disposition home or self-care (01) ==
LOC: EDUNIT#
DX: J45.909 Unspecified asthma, uncomplicated (principal); Z87.891 Personal history of nicotine dependence
CPT/HCPCS: 96374; J2930